=== PATIENT | male | born 1945 ===

== ENCOUNTER → 2016-06-06 | Outpatient (REF) ==
[2016-06-06 16:53] LABS: C-REACTIVE PROTEIN 1.2 mg/dL (0.0-0.9)
[2016-06-06 17:00] LABS: URIC ACID 4.7 mg/dL (3.5-8.5)
== END ==
LOC: ZLAB.WCH 16:03
PROVIDERS: Nurse Practitioner Family
DX: Z01.89 Encounter for other specified special examinations (principal)

== ENCOUNTER → 2017-03-02 | Outpatient (REF) ==
[2017-03-02 09:24] LABS: C-REACTIVE PROTEIN 4.6 mg/dL (0.0-0.9)
[2017-03-02 09:53] LABS: THYROID STIMULATING HORMONE 1.59 uIU/mL (0.465-4.680)
== END ==
LOC: ZLAB.WCH 08:56
DX: Z01.89 Encounter for other specified special examinations (principal)